=== PATIENT | male | born 1975 | race Caucasian/White ===

== ENCOUNTER 2023-06-20 07:48 | Emergency (ER) | payer OTHER ==
[2023-06-20] MEDS ORDERED: chlorproMAZINE 50 MG/2 ML Amp IM STA (08:14)
== END 2023-06-20 09:01 | disposition home or self-care (01) ==
LOC: MW.ED 07:48
DX: R06.6 Hiccough (principal)
CPT/HCPCS: 96372; 99283; J3230

== ENCOUNTER 2023-08-25 06:50 | Day surgery (SDC) | payer OTHER ==
[~2023-08-25 06:50] MED LIST: Albuterol 0.083% 2.5 MG/3 ML Neb Soln NEB PRN; HYDROmorphone 1 MG/ML Syringe IVPUSH PRN; Lactated Ringers 1,000 ML IV SCH; Metoclopramide 10 MG/2 ML SDV IVPUSH PRN; Morphine 2 MG/ML SYRINGE IVPUSH PRN; Naloxone 0.4 MG/ML SDV IVPUSH PRN; Ondansetron 4 MG/2 ML SDV IVPUSH PRN; droPERidol 5 MG/2 ML SDV IVPUSH PRN; fentaNYL 50 MCG/ML SDV IVPUSH PRN
[2023-08-25] MEDS ORDERED: Water For Injection, Sterile 20 ML ONE (06:54)
[2023-08-25] MEDS ORDERED: Bupivacaine 0.5% 10 ML SDV ONE (06:54)
[2023-08-25] MEDS ORDERED: Lidocaine 2% 5 ML SDV ONE (06:54)
[2023-08-25] MEDS ORDERED: EPINEPHrine 1 MG/1 ML Amp ONE (07:24)
[2023-08-25] MEDS ORDERED: Bupivacaine 0.5%/EPINEPHrine 1:200,000 30 ML SDV ONE (07:24)
[2023-08-25] MEDS ORDERED: ceFAZolin 2 GM in Sodium Chloride 0.9% 50 ML IV ONE (08:00)
== END 2023-08-25 10:35 | disposition home or self-care (01) ==
LOC: MW.SDS 06:50
PROVIDERS: ATTEND Orthopaedic Surgery
DX: M75.101 Unspecified rotator cuff tear or rupture of right shoulder, not specified as traumatic (principal); E66.9 Obesity, unspecified; F17.200 Nicotine dependence, unspecified, uncomplicated
CPT/HCPCS: 29826; 29827; 64415; J0171; J0665; J7120; J3490

== ENCOUNTER 2025-01-28 09:58 | Emergency (ER) | payer OTHER ==
[2025-01-28] MEDS: Ketorolac 30 MG/ML SDV IM ONE (10:38)
== END 2025-01-28 10:55 | disposition home or self-care (01) ==
LOC: MW.ED 09:58
DX: S33.5XXA Sprain of ligaments of lumbar spine, initial encounter (principal); E66.9 Obesity, unspecified; F17.200 Nicotine dependence, unspecified, uncomplicated; Z79.899 Other long term (current) drug therapy; Z79.1 Long term (current) use of non-steroidal anti-inflammatories (NSAID); Z68.31 Body mass index [BMI] 31.0-31.9, adult; X58.XXXA Exposure to other specified factors, initial encounter
CPT/HCPCS: 96372; 99283; J1100; J1885; 99282

== ENCOUNTER 2025-02-19 09:48 | Day surgery (SDC) | payer OTHER ==
[~2025-02-19 09:48] MED LIST changes: -Albuterol 0.083% 2.5 MG/3 ML Neb Soln NEB PRN; -HYDROmorphone 1 MG/ML Syringe IVPUSH PRN; -Metoclopramide 10 MG/2 ML SDV IVPUSH PRN; -Morphine 2 MG/ML SYRINGE IVPUSH PRN; -Naloxone 0.4 MG/ML SDV IVPUSH PRN; -Ondansetron 4 MG/2 ML SDV IVPUSH PRN; -droPERidol 5 MG/2 ML SDV IVPUSH PRN; -fentaNYL 50 MCG/ML SDV IVPUSH PRN
[2025-02-19] MEDS: Lactated Ringers 1,000 ML IV SCH (10:05)
[2025-02-19] MEDS ORDERED: propofoL 500 MG/50 ML 50 ML ONE (10:46)
[2025-02-19] MEDS ORDERED: Lactated Ringers 1,000 ML IV SCH (11:45)
== END 2025-02-19 13:05 | disposition home or self-care (01) ==
LOC: MW.SDS 09:48
PROVIDERS: ATTEND Surgery
DX: K62.1 Rectal polyp (principal); K63.89 Other specified diseases of intestine
CPT/HCPCS: 00811; J2003; J2704; J7120